=== PATIENT | male | born 1960 | race Caucasian/White ===

== ENCOUNTER 2024-06-21 13:08 | Emergency (ER) | payer OTHER, MEDICARE ==
[~2024-06-21] VITALS: Ht 205.7 cm; Wt 136.1 kg
[2024-06-21] MEDS ORDERED: Diphth,Pertuss(Acell),Tet Vac 0.5 ML VIAL IM ONE (13:25)
[2024-06-21] MEDS ORDERED: BUSPIRONE HCL30 M6 PO (14:34)
[2024-06-21] MEDS ORDERED: COLACE100 MG (14:35)
[2024-06-21] MEDS ORDERED: ESCI20 PO (14:35)
[2024-06-21] MEDS ORDERED: CARBATROL PO (14:35)
[2024-06-21] MEDS ORDERED: ATOR40TA (14:35)
[2024-06-21] MEDS ORDERED: DIVALPROEX SOD500 M2 PO (14:35)
[2024-06-21] MEDS ORDERED: ASPI81CH PO (14:35)
[2024-06-21] MEDS ORDERED: THERA-D2000 UNIT PO (14:36)
[2024-06-21] MEDS ORDERED: OLANZAPINE5 M1 PO (14:36)
[2024-06-21] MEDS ORDERED: Trihexyphenidyl5 MG PO (14:36)
[2024-06-21] MEDS ORDERED: RISPERIDONE110 PO (14:36)
== END 2024-06-21 15:36 | disposition home or self-care (01) ==
LOC: ER 13:08
DX: S01.01XA Laceration without foreign body of scalp, initial encounter (principal); Z91.09 Other allergy status, other than to drugs and biological substances; Z59.89 Other problems related to housing and economic circumstances; W01.0XXA Fall on same level from slipping, tripping and stumbling without subsequent striking against object, initial encounter
CPT/HCPCS: 70450; 90471; 90715; 99283-25